=== PATIENT | female | born 1970 | race Caucasian/White ===

== ENCOUNTER 2016-10-21 11:30 | Emergency (ER) | payer OTHER ==
--- NOTE | ~2016-10-21 | CR63 ---
[facility] RADIOLOGY TEXT RESULTS PATIENT: UZMA ORDOÑEZ LOCATION: SED : 70 UNIT #: [id number] AGE: [address]: Ally Sexton APRN SEX: F ORDER DR: [id number] [place] [id number] E MR#: [id number] Acc #: [id number] NAME: UZMA ORDOÑEZ : 1970 SEX: F STUDY DATE/TIME: 10/21/2016 12:19 UNIT: SED ROOM: STUDY DESCRIPTION: CR Chest 2 View Attending Physician: Ally Sexton A.P.R.N. Ordering Physician: Ally Sexton A.P.R.N. Primary Care Physician: No Primary Care Physician MEDICAL IMAGING REPORT This report is preliminary unless electronic signature is present. EXAM Chest 2 views 10/21/2016 1219 hours HISTORY 45-year-old with cough, congestion and fever for a few days. COMPARISON None. FINDINGS Upright PA and lateral views of the chest demonstrate normal heart size. The aorta is mildly tortuous. Hilar contours are normal. Contours at the superior mediastinum raise question of a right-sided aortic arch. The lungs are clear. There is a moderately large hiatal hernia with air-fluid levels seen. There are no effusions. IMPRESSION 1. The lungs are clear and there are no effusions. 2. Moderately large hiatal hernia with air-fluid level. 3. Contours of the superior mediastinum raise question of right-sided aortic arch. The contour change however could simply be related to mild underlying scoliosis. Dictated by... Marycarmen Wallis M.D. THIS IS AN ELECTRONICALLY VERIFIED REPORT Marycarmen Wlalis M.D. at 10/21/2016 2:28 PM ANOOPM/zulemar TD: 10/21/2016 13:26 JOB #: [id number] [facility] RADIOLOGY TEXT RESULTS PATIENT: UZMA ORDOÑEZ LOCATION: [facility] #: [id number] : [birth year] UNIT #: [id number] AGE: [address]: Ally Sexton APRN SEX: F ORDER DR: MEDICAL IMAGING REPORT Page 1 of 1
[2016-10-21] MEDS ORDERED: LAMICTAL (11:34)
[2016-10-21] MEDS ORDERED: LEXAPRO (11:34)
[2016-10-21 12:31] LABS: INFLUENZA A NEG (NEG); INFLUENZA B NEG (NEG)
[2016-10-21 12:52] LABS: URINE SOURCE CLEAN CATCH
[2016-10-21 13:13] LABS: URINE APPEARANCE CLEAR; URINE BILIRUBIN NEG (NEG); URINE BLOOD NEG (NEG); URINE COLOR YELLOW; URINE GLUCOSE NEG (NORM); URINE KETONE NEG (NEG); URINE LEUKOCYTE ESTERASE TRACE (NEG); URINE NITRATE NEG (NEG); URINE PH 5.5 (5-8); URINE PROTEIN NEG (NEG); URINE SPECIFIC GRAVITY 1.025 (1.003-1.035); URINE UROBILINOGEN 0.2 MG/DL (NORM)
[2016-10-21 13:14] LABS: MICRO INDICATED? YES
[2016-10-21 13:23] LABS: CULTURE INDICATED? YES; URINE BACTERIA 1+ (NEG); URINE RBC 0-2 /[HPF] (0-2); URINE SQUAMOUS EPITHELIAL CELL FEW /[HPF]
== END 2016-10-21 13:40 | disposition home or self-care (01) ==
LOC: SED 11:30
PROVIDERS: Nurse Practitioner
DX: J20.9 Acute bronchitis, unspecified (principal); N39.0 Urinary tract infection, site not specified; Z88.2 Allergy status to sulfonamides
CPT/HCPCS: 71020; 81003; 87086; 87804; 99283